=== PATIENT | female | born 1990 | race Caucasian/White ===

== ENCOUNTER → 2016-09-28 | Outpatient (REF) | payer OTHER | LOC: M LAB REF 09:33 | PROVIDERS: ATTEND Advanced Practice Midwife | DX: Z34.82 Encounter for supervision of other normal pregnancy, second trimester (principal) ==

== ENCOUNTER → 2017-01-05 | Outpatient (REF) | payer OTHER | LOC: M LAB REF 17:13 | PROVIDERS: ATTEND Advanced Practice Midwife | DX: Z34.83 Encounter for supervision of other normal pregnancy, third trimester (principal) ==

== ENCOUNTER 2017-01-28 23:24 | Inpatient (IN) | payer OTHER ==
[~2017-01-28] VITALS: Ht 157.5 cm; Wt 60.0 kg
[2017-01-29] VITALS (8 sets, daily range): BP systolic 111–122; BP diastolic 56–67
[2017-01-29] MEDS ORDERED: LR 1,000 ML IV SCH ×2 (00:20→02:33)
[2017-01-29] MEDS ORDERED: LACTATED RINGER'S 1000 ML IV STA (00:20)
[2017-01-29] MEDS ORDERED: OXYTOCIN 30 UNITS IN 0.9% NaCl 500ML IV BAG (J2590) As Ordered ONE (00:40)
[2017-01-29 00:44] LABS: BASO % 0.5 % (0.0-1.0); EOS % 0.5 % (0.0-3.0); LARGE UNSTAINED CELL # 0.1 K/mm3 (0.0-0.4); LARGE UNSTAINED CELL % 1.4 % (0.0-4.0); LYMPH # 1.8 K/mm3 (1.5-6.5); MEAN CORPUSCULAR HEMOGLOBIN 24.7 pg (27.0-33.0); MEAN CORPUSCULAR HGB CONC 32.6 g/dl (32.0-36.5); MEAN CORPUSCULAR VOLUME 75.7 fl (80.0-96.0); MONO # 0.3 K/mm3 (0.0-0.8); MONO % 4.5 % (0.0-5.0); NEUTROPHILS # 5.2 K/mm3 (1.8-7.7); PLATELET COUNT, AUTOMATED 211 k/mm3 (150-450); RED CELL DISTRIBUTION WIDTH 14.8 % (11.5-14.5); WHITE BLOOD COUNT 7.6 K/mm3 (4.0-10.0)
[2017-01-29] MEDS ORDERED: IBUPROFEN 800 MG TAB As Ordered ONE (02:10)
[2017-01-29] MEDS ORDERED: OXYTOCIN DRIP 30 UNITS in APPROPRIATE DILUENT 1 EA IV SCH (02:33)
[2017-01-29] MEDS ORDERED: PROMETHAZINE 25 MG TAB PO PRN (02:45)
[2017-01-29] MEDS ORDERED: ONDANSETRON 4MG/2ML VIAL (J2405) IV PRN (02:45)
[2017-01-29] MEDS ORDERED: LIDOCAINE 1% MDV INJ 50 ML VIAL INFIL ONE (02:45)
[2017-01-29] MEDS ORDERED: DOCUSATE SODIUM 100 MG CAP PO PRN (02:45)
[2017-01-29] MEDS ORDERED: RHOGAM 300 MCG (1500 IU) INJ (J2790) IM SCH (02:45)
[2017-01-29] MEDS ORDERED: DIBUCAINE 1% OINTMENT 30GM TOP PRN (02:45)
[2017-01-29] MEDS: IBUPROFEN 800 MG TAB PO PRN ×3 (02:51→17:50)
[2017-01-29] MEDS: PRENATAL VITAMINS CHEWABLE TABLET PO SCH (09:59)
[2017-01-29] MEDS: ACETAMINOPHEN 500 MG TAB PO PRN ×2 (15:02→22:28)
[2017-01-30] MEDS ORDERED: LIDOCAINE 1% MDV INJ 50 ML VIAL INFIL ONE (00:15)
[2017-01-30] MEDS: IBUPROFEN 800 MG TAB PO PRN ×3 (03:53→22:21)
[2017-01-30 05:37] VITALS: BP 111/65
[2017-01-30] MEDS: ACETAMINOPHEN 500 MG TAB PO PRN ×2 (06:53→17:40)
[2017-01-30] MEDS: PRENATAL VITAMINS CHEWABLE TABLET PO SCH (09:30)
[2017-01-30 18:08] VITALS: BP 122/67
[2017-01-31 05:33] VITALS: BP 107/57
[2017-01-31] MEDS: PRENATAL VITAMINS CHEWABLE TABLET PO SCH (08:41)
[2017-01-31] MEDS: ACETAMINOPHEN 500 MG TAB PO PRN (08:41)
[2017-01-31] MEDS ORDERED: ACET50TA PO (09:41)
[2017-01-31] MEDS ORDERED: IBUP-1114 PO (09:41)
[2017-01-31] MEDS ORDERED: PRENTAB9 PO (09:41)
== END 2017-01-31 11:00 | disposition home or self-care (01) | DRG 560 ==
LOC: M LDO 23:24 → M LDI 23:45 → M OBS 01-29 04:18
PROVIDERS: ADMIT Obstetrics & Gynecology; ATTEND Obstetrics & Gynecology
PROC: 10E0XZZ Delivery of Products of Conception, External Approach (ICD-10-PCS; principal; 2017-01-29)
PROC: 0KQM0ZZ Repair Perineum Muscle, Open Approach (ICD-10-PCS; 2017-01-29)
DX: O48.0 Post-term pregnancy (principal); O70.1 Second degree perineal laceration during delivery; Z37.0 Single live birth; Z3A.40 40 weeks gestation of pregnancy